=== PATIENT | female | born 1965 | race Caucasian/White ===

== ENCOUNTER 2018-11-03 19:41 | Emergency (ER) | payer OTHER, SELFPAY ==
[2018-11-03 19:46] VITALS: BP 141/54; PULSE 100; RESP 18; TEMP 36.7; O2SAT 98; BMI 28.4
[2018-11-03] MEDS: Diphth,Pertuss(Acell),Tet Vac 0.5 ML Vial IM (20:23)
--- NOTE | 2018-11-03 20:44 | ED.DCSUM_ITS ---
- ER Visit Summary Date of Service: 11/03/18 Chief Complaint: [Dog bite] History of Present Illness: The patient is a 53 F [presents to the emergency department complaint of a dog bite to her left forearm that occurred around 2 PM. 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 The dog was a stray and had been running around the area prior to capture today. Patient states that the dog did have a microchip from [facility] and believes that likely the dog is been immunized. Dog did not seem rabid. The dog is captured and can be observed. Patient unsure of her last tetanus shot. Patient is right-hand dominant.] Physical Examination: [Right forearm-patient has a 1 cm puncture wound to the proximal volar forearm into the muscle with fat extruding and the wound is gaping. She is neurovascular intact distally with normal station normal cap refill.] Test Results: [None indicated] Emergency Department Course and Treatment: [Laceration repair-wound sterilely draped and prepped. Wound cleansed with Shur-Clens and irrigated with copious saline. Wound anesthetized initially locally with 2 cc of 1% lidocaine. Wound again was copiously irrigated. Using 5-0 nylon one single interrupted suture was loosely placed to approximate the wound edges. Patient tired procedure well. Clean dressing applied.] Patient was given Adacel tetanus booster. Patient was given a dose of Augmentin. Treatment Plan: [Patient will be treated with Augmentin for 7 days. Patient advised to follow-up for suture removal in 10 days. Patient advised to return if worsening pain, redness, swelling, or conditions worsen anyway.] Disposition: [Discharged home in stable condition.] Impression: [Dog bite right forearm Right forearm laceration 1 cm-simple repair] This note was generated with [employer] dictation software. It may contain incorrect words, spelling, and punctuation that were not noted in review of the chart prior to signing ED Disposition - Plan for ED Patient: Referrals: Marleny Delgado DO [Primary Care Provider] -
--- NOTE | 2018-11-03 20:47 | DCINST.ED_ITS ---
ED Disposition - Plan for ED Patient: Instructions: Dog Bite, LACERATION, Extrem (Suture, Staple or Tape) Prescriptions: Amox/Clavulanate Tablet [Augmentin Tablet] 875 mg PO Q12H #14 tab Prescription Printed Referrals: Marleny Delgado DO [Primary Care Provider] - [facility] [place] [GROUP OF PHYSICIANS] - 10 Day for suture removal
[2018-11-03] MEDS: Amox/Clavulanate 875 MG Tablet PO (20:56)
== END 2018-11-03 21:00 | disposition home or self-care (01) ==
LOC: ED 20:12
PROVIDERS: Emergency Provider Emergency Medicine; Family Provider Internal Medicine; PCP Internal Medicine
DX: S50.871A Other superficial bite of right forearm, initial encounter (principal); S51.811A Laceration without foreign body of right forearm, initial encounter; W54.0XXA Bitten by dog, initial encounter; Y93.9 Activity, unspecified; Y92.9 Unspecified place or not applicable
CPT/HCPCS: 12001; 90715; 99283

== ENCOUNTER 2022-06-01 19:44 | Emergency (ER) | payer OTHER, SELFPAY ==
[2022-06-01 19:44] VITALS: BP 145/103; PULSE 110; RESP 16; TEMP 36.8; O2SAT 99; BMI 31.3
[2022-06-01 19:52] VITALS: BP 155/75
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
== END 2022-06-01 21:09 | disposition home or self-care (01) ==
PROVIDERS: Emergency Provider Emergency Medicine; Visit Provider Emergency Medicine
DX: S06.0X0A Concussion without loss of consciousness, initial encounter (principal); V89.2XXA Person injured in unspecified motor-vehicle accident, traffic, initial encounter; Y99.0 Civilian activity done for income or pay
CPT/HCPCS: 99284

== ENCOUNTER → 2023-06-30 | Outpatient (CLI) | payer OTHER, SELFPAY ==
--- NOTE | 2023-06-30 14:02 | VDLE_ITS ---
Reason For Study: RLE PAIN RIGHT LEFT GSV is normal. CFV is compressible, spontaneous, phasic, CFV is compressible, spontaneous, phasic, competent, and demonstrates normal competent and demonstrates normal augmentation. augmentation. FV is compressible, spontaneous, phasic, competent and demonstrates normal augmentation. POP V is compressible, spontaneous, phasic, competent and demonstrates normal augmentation. T/P Trunk is compressible. PTV is compressible. RT PerV is compressible. Procedure This is a venous duplex using B-mode, color flow and spectral Doppler. Exam performed in department. A preliminary report was called and/or faxed to DR. Brooks @ 14:40 @ [phone]. VL/Venous Duplex US, Unilateral Interpretation Summary Deep veins of the right lower extremity are patent and compressible segmentally . There is no evidence of right lower extremity deep vein thrombosis. Valvular competence sheri ears intact within the proximal deep venous system on the right . The right great saphenous vein a ppears patent and compressible segmentally. The left common femoral vein is patent and compressib le . Ordering Physician: Chris Brooks V Referring Physician: Carline Castellanos Performed By: Yenny Meyer, MECHE, RVT
== END | disposition home or self-care (01) ==
LOC: CVS 14:00
PROVIDERS: PCP Family Medicine; Referring Provider Internal Medicine Pulmonary Disease; Visit Provider Internal Medicine Pulmonary Disease
DX: M79.661 Pain in right lower leg (principal); R22.41 Localized swelling, mass and lump, right lower limb
CPT/HCPCS: 93971